=== PATIENT | female | born 1985 | race Asian ===

== ENCOUNTER 2023-07-10 00:46 | Emergency (ER) | payer OTHER ==
[~2023-07-10] VITALS: Ht 162.6 cm; Wt 73.0 kg
[2023-07-10 00:59] VITALS: O2SAT 98
[2023-07-10 03:47] LABS: ALANINE AMINOTRANSFERASE 13 IU/L (10-49)
[2023-07-10] MEDS ORDERED: RALTEGRAVIR 400 MG TABLET PO SCH (06:45)
[2023-07-10] MEDS ORDERED: EMTRICITABINE 200MG CAPSULE PO ONE (06:45)
[2023-07-10] MEDS ORDERED: TENOFOVIR 300MG TABLET PO ONE (06:45)
[2023-07-10 07:45] LABS: HCG SCREEN NEGATIVE
[2023-07-10 08:53] LABS: ALANINE AMINOTRANSFERASE 13 IU/L (10-49); ALBUMIN 4.3 g/dL (3.2-4.8); ASPARTATE AMINOTRANSFERASE 23 IU/L (<34); BILIRUBIN TOTAL 0.7 mg/dL (0.1-1.0); CALCIUM 9.2 mg/dL (8.7-10.4); CARBON DIOXIDE 24 mEq/L (21-32); CHLORIDE 105 mEq/L (98-107); CREATININE 0.7 mg/dL (0.6-1.0); GLUCOSE 84 mg/dL (70-105); POTASSIUM 3.5 mEq/L (3.5-5.1); PROTEIN TOTAL 7.8 g/dL (6.0-8.3); SODIUM 139 mEq/L (136-145); UREA NITROGEN BLOOD 11 mg/dL (9-23)
[2023-07-10] MEDS ORDERED: EMTR1TAB11 MT (09:13)
[2023-07-10] MEDS ORDERED: RALT400T MT (09:13)
[2023-07-10 09:18] VITALS: BP 124/84; PULSE 87; RESP 17; TEMP 97.2
[2023-07-10 18:44] LABS: HEPATITIS C VIR.AB 0.04 INDEXVAL (0.00-0.80)
[2023-07-10 19:15] LABS: HEPATITIS B CORE AB IGM NEGATIVE (Negative); HEPATITIS B SURFACE AB 38.6 mIU/mL (<10); HEPATITIS C AB NON REACTIVE (Neg) (Negative)
== END 2023-07-10 09:20 | disposition home or self-care (01) ==
LOC: ER 00:46
DX: S61.032A Puncture wound without foreign body of left thumb without damage to nail, initial encounter (principal); X58.XXXA Exposure to other specified factors, initial encounter; Y99.0 Civilian activity done for income or pay; Y92.89 Other specified places as the place of occurrence of the external cause
CPT/HCPCS: 36415; 80053; 84460; 84703; 86705; 86706; 99284